=== PATIENT | male | born 1965 | race Hispanic/Latino ===

== ENCOUNTER 2025-08-08 22:45 | Inpatient (IN) | payer MEDICAID, SELFPAY ==
[~2025-08-08 22:45] MED LIST: Iopamidol-370 76% 500 ML MDV (1 ML CHARGE) ONE
[2025-08-08 23:37] LABS: #Basophils 0.04 10x3/uL (0.0-0.2); #Eosinophils 0.12 10x3/uL (0.0-0.7); #Monocytes 0.65 10x3/uL (0.11-0.59); #Neutrophils 4.13 10x3/uL (1.40-6.50); %Basophils 0.6 % (0.0-1.0); %Eosinophils 1.8 % (0.0-10.0); %Lymphocytes 27.4 % (21.0-51.0); %Monocytes 9.5 % (0.0-10.0); %Neutrophils 60.4 % (42.0-75.0); Hematocrit 41.4 % (42.0-52.0); Hemoglobin 14.1 g/dL (14.0-18.0); Mean Corpuscular Hemoglobin 32.8 pg (27.0-31.0); Mean Corpuscular Volume 96.3 fL (78.0-98.0); Platelet Count 194 10x3/uL (130-400); Red Blood Cell (RBC) Count 4.30 mill/uL (4.70-6.10); White Blood Cell (WBC) Count 6.83 10x3/uL (4.8-10.8)
[2025-08-08 23:50] LABS: ALT (SGPT) 24 U/L (Less than 45); AST (SGOT) 35 U/L (11-34); Albumin 3.8 g/dL (3.1-4.5); Alkaline Phosphatase 84 U/L (40-110); Anion Gap 14 mmol/L (10-20); BUN (Urea Nitrogen) 11 mg/dL (8.4-25.7); Bilirubin, Total 0.3 mg/dL (0.3-1.2); Calc. Creatinine Clearance 0 mL/min (70-130); Calcium 9.0 mg/dL (7.8-10.44); Carbon Dioxide 22 mmol/L (23-31); Chloride 108 mmol/L (98-107); Globulin 4.0 g/dL (2.4-3.5); Glucose 158 mg/dL (80-115); Potassium 3.5 mmol/L (3.5-5.1); Sodium 140 mmol/L (136-145)
[2025-08-09] MEDS ORDERED: Nitroglycerin 2% Ointment 1 INCH/1 GM Packet ONE (00:23)
[2025-08-09] MEDS ORDERED: Furosemide 40 MG (4 mL) VIAL ONE ×2 (00:23→00:36)
[2025-08-09] MEDS ORDERED: Acetaminophen 325 MG TAB PO PRN (02:32)
[2025-08-09] MEDS ORDERED: Ondansetron PF 4 MG/2 ML Vial IVP PRN (02:32)
[2025-08-09 03:21] LABS: Cocaine Metabolite Screen Negative (Negative); THC/Cannabinoid Screen Negative (Negative); Tricyclic Screen Negative (Negative)
[2025-08-09 04:52] VITALS: BMI 24.5
[2025-08-09 05:56] LABS: #Basophils Less than 0.03 10x3/uL (0.0-0.2); #Eosinophils 0.06 10x3/uL (0.0-0.7); #Monocytes 0.80 10x3/uL (0.11-0.59); #Neutrophils 4.59 10x3/uL (1.40-6.50); %Basophils 0.3 % (0.0-1.0); %Eosinophils 0.9 % (0.0-10.0); %Lymphocytes 20.9 % (21.0-51.0); %Monocytes 11.5 % (0.0-10.0); %Neutrophils 66.1 % (42.0-75.0); Hematocrit 40.5 % (42.0-52.0); Hemoglobin 13.6 g/dL (14.0-18.0); Mean Corpuscular Hemoglobin 32.5 pg (27.0-31.0); Mean Corpuscular Volume 96.7 fL (78.0-98.0); Platelet Count 202 10x3/uL (130-400); Red Blood Cell (RBC) Count 4.19 mill/uL (4.70-6.10); White Blood Cell (WBC) Count 6.94 10x3/uL (4.8-10.8)
[2025-08-09 06:09] LABS: Anion Gap 14 mmol/L (10-20); BUN (Urea Nitrogen) 11 mg/dL (8.4-25.7); Calc. Creatinine Clearance 81 mL/min (70-130); Calcium 9.0 mg/dL (7.8-10.44); Carbon Dioxide 23 mmol/L (23-31); Chloride 107 mmol/L (98-107); Glucose 126 mg/dL (80-115); Magnesium 1.7 mg/dL (1.6-2.6); Potassium 3.4 mmol/L (3.5-5.1); Sodium 141 mmol/L (136-145)
[2025-08-09] MEDS: Furosemide 20 MG (2 mL) VIAL SLOW IVP SCH (06:37)
[2025-08-09] MEDS: Magnesium 2 GM/50 ML(in water) 2 GM in Premix 1 BAG IVPB SCH (08:05)
[2025-08-09] MEDS: Enoxaparin 40 MG (0.4 mL) SYRINGE SC SCH (08:07)
[2025-08-09] MEDS: Folic Acid 1 MG TAB PO SCH (08:07)
[2025-08-09] MEDS: Multivit, Therapeutic 1 TAB PO SCH (08:08)
[2025-08-09] MEDS: Carvedilol 6.25 MG TAB PO SCH (18:55)
[2025-08-10 04:35] LABS: Anion Gap 15 mmol/L (10-20); BUN (Urea Nitrogen) 15 mg/dL (8.4-25.7); Calc. Creatinine Clearance 74 mL/min (70-130); Calcium 9.3 mg/dL (7.8-10.44); Carbon Dioxide 24 mmol/L (23-31); Chloride 106 mmol/L (98-107); Glucose 123 mg/dL (80-115); Magnesium 2.1 mg/dL (1.6-2.6); Potassium 3.5 mmol/L (3.5-5.1); Sodium 141 mmol/L (136-145)
[2025-08-10] MEDS ORDERED: Furosemide 20 MG (2 mL) VIAL SLOW IVP SCH (09:03)
[2025-08-10] MEDS: Furosemide 40 MG (4 mL) VIAL SLOW IVP SCH (09:33)
[2025-08-10] MEDS: Spironolactone 25 MG TAB PO SCH (09:33)
[2025-08-10] MEDS: Aspirin 81 mg Enteric Coated Tablet PO SCH (09:33)
[2025-08-10] MEDS: Carvedilol 6.25 MG TAB PO SCH (09:33)
[2025-08-11 04:10] LABS: Anion Gap 14 mmol/L (10-20); BUN (Urea Nitrogen) 24 mg/dL (8.4-25.7); Calc. Creatinine Clearance 59 mL/min (70-130); Calcium 9.7 mg/dL (7.8-10.44); Carbon Dioxide 26 mmol/L (23-31); Chloride 102 mmol/L (98-107); Glucose 123 mg/dL (80-115); Magnesium 1.9 mg/dL (1.6-2.6); Potassium 3.4 mmol/L (3.5-5.1); Sodium 139 mmol/L (136-145)
[2025-08-11] MEDS ORDERED: Furosemide 20 MG TAB PO SCH (09:00)
[2025-08-11] MEDS: Dapagliflozin Propanediol 10 MG TAB PO SCH (10:28)
[2025-08-11] MEDS: Lisinopril 10 MG TAB PO SCH (10:29)
[2025-08-11] MEDS: Lisinopril 5 MG TAB PO SCH (10:36)
[2025-08-11] MEDS: Furosemide 40 MG TAB PO SCH (15:38)
[2025-08-11 17:41] VITALS: BP 117/71
[2025-08-11 18:14] VITALS: TEMP 98.4
[2025-08-12] MEDS ORDERED: Thiamine 100 MG TAB PO SCH (09:00)
== END 2025-08-11 18:55 | disposition home or self-care (01) | DRG 293 ==
LOC: ERS 22:45 → PCU 08-09 02:58
PROVIDERS: ADMIT Internal Medicine; ATTEND Hospitalist
DX: I11.0 Hypertensive heart disease with heart failure (principal); I16.0 Hypertensive urgency; R59.1 Generalized enlarged lymph nodes; I50.9 Heart failure, unspecified; I42.0 Dilated cardiomyopathy; F10.10 Alcohol abuse, uncomplicated; Z98.890 Other specified postprocedural states; Z87.891 Personal history of nicotine dependence
CPT/HCPCS: 36415; 71045; 71275; 80048; 80053; 80306; 83735; 83880; 84484; 85025; 93005; 93306; 96374; 97139; J1650; J1940; J3411; J3475; Q9957; Q9967